=== PATIENT | male | born 1985 | race Caucasian/White ===

== ENCOUNTER 2016-12-28 12:47 | Emergency (ER) | payer OTHER ==
[2016-12-28] MEDS ORDERED: LIDOCAINE 2% VISCOUS SOLN 20 ML UDCUP PO ONE (13:09)
[2016-12-28] MEDS ORDERED: ASPIRIN 81 MG TABLET, CHEWABLE PO ONE (13:09)
[2016-12-28] MEDS ORDERED: METOCLOPRAMIDE HCL ORAL SOLN 10 MG/10 ML UDCUP PO ONE (13:09)
[2016-12-28] MEDS ORDERED: MAG HYDROX/AL HYDROX/SIMETH SUSP 30 ML UDCUP PO ONE (13:09)
--- NOTE | 2016-12-28 13:12 | ER Document Report ---
ED Medical Screen (RME) - General Chief Complaint: Chest Pain Stated Complaint: CHEST PAIN Mode of Arrival: Ambulatory Information source: Patient Notes: 31 y/o M presents to ED c/o intermittently persistent substernal chest and epigastric area pain over the last week. Reports associated dizziness and lightheadedness. Denies fever or hemoptysis. I have greeted and performed a rapid initial assessment of this patient. A comprehensive ED assessment and evaluation of the patient, analysis of test results and completion of the medical decision making process will be conducted by additional ED providers. TRAVEL OUTSIDE OF THE [place] IN LAST 30 DAYS: No - Related Data Allergies/Adverse Reactions: morphine [Morphine] Allergy (Intermediate, Verified 12/28/16 13:09) Past Medical History - Social History Chew tobacco use (# tins/day): No Frequency of alcohol use: Rare Drug Abuse: None Family history: None - adopted - Past Medical History Cardiac Medical History: Denies: Hx Coronary Artery Disease, Hx Heart Attack, Hx Hypertension Pulmonary Medical History: Denies: Hx Asthma, Hx Bronchitis, Hx COPD, Hx Pneumonia Neurological Medical History: Reports: Hx Migraine. Denies: Hx Cerebrovascular Accident, Hx Seizures Renal/ Medical History: Denies: Hx Peritoneal Dialysis Musculoskeltal Medical History: Reports Hx Arthritis - All over, Reports Hx Musculoskeletal Trauma Psychiatric Medical History: Reports: Hx Anxiety, Hx Depression Past Surgical History: Reports: Hx Adenoidectomy, Hx Appendectomy, Hx Orthopedic Surgery - LEFT SHOULDER 12/2009, Hx Tonsillectomy - Immunizations Immunizations up to date: Yes Hx Diphtheria, Pertussis, Tetanus Vaccination: Yes Physical Exam - Vital signs Vitals: Temp Pulse Resp BP Pulse Ox 98.7 F 85 20 103/61 98 12/28/16 13:06 12/28/16 13:06 12/28/16 13:06 12/28/16 13:06 12/28/16 13:06 - General General appearance: Appears well, Alert In distress: None - Respiratory Respiratory status: No respiratory distress - Cardiovascular Rhythm: Regular Pulses: Normal: Radial Normal capillary refill: Yes Course - Vital Signs Vital signs: Temp Pulse Resp BP Pulse Ox 98.7 F 85 20 103/61 98 12/28/16 13:06 12/28/16 13:06 12/28/16 13:06 12/28/16 13:06 12/28/16 13:06
[2016-12-28 13:58] LABS: ABSOLUTE EOSINOPHILS # (AUTO) 0.2 10^3/uL (0.0-0.6); ABSOLUTE LYMPHOCYTES (AUTO) 1.6 10^3/uL (0.5-4.7); ABSOLUTE MONOCYTES (AUTO) 0.6 10^3/uL (0.1-1.4); ABSOLUTE NEUT (AUTO) 5.1 10^3/uL (1.7-8.2); BASOPHILS % (AUTO) 0.5 % (0-2); EOSINOPHILS % (AUTO) 2.4 % (0-6); HEMATOCRIT 44.9 % (37.9-51.0); HEMOGLOBIN 15.2 g/dL (13.5-17.0); HGB HCT DIFFERENCE 0.7; LYMPHOCYTES % (AUTO) 21.4 % (13-45); MEAN CORPUSCULAR HEMOGLOBIN 29.8 pg (27.0-33.4); MEAN CORPUSCULAR VOLUME 88 fl (80-97); MONOCYTES % (AUTO) 8.3 % (3-13); RED BLOOD COUNT 5.11 10^6/uL (4.35-5.55); RED CELL DISTRIBUTION WIDTH 14.1 % (11.5-14.0); SEGMENTED NEUTROPHILS % (AUTO) 67.4 % (42-78); WHITE BLOOD COUNT 7.6 10^3/uL (4.0-10.5)
[2016-12-28 14:16] LABS: ALANINE AMINOTRANSFERASE 20 U/L (21-72); ALBUMIN 4.4 g/dL (3.5-5.0); ALKALINE PHOSPHATASE 50 U/L (38-126); ANION GAP 13 (5-19); ASPARTATE AMINO TRANSFERASE 15 U/L (17-59); BILIRUBIN,TOTAL 0.5 mg/dL (0.2-1.3); BLOOD UREA NITROGEN 8 mg/dL (7-20); CALCIUM 9.9 mg/dL (8.4-10.2); CARBON DIOXIDE 26 mmol/L (22-30); CHLORIDE 102 mmol/L (98-107); CREATINE KINASE 117 U/L (55-170); CREATININE RESULT 0.82 mg/dL (0.52-1.25); GLUCOSE 94 mg/dL (75-110); LIPASE 42.4 U/L (23-300); POTASSIUM 4.2 mmol/L (3.6-5.0); SODIUM 140.7 mmol/L (137-145); TOTAL PROTEIN 7.3 g/dL (6.3-8.2)
[2016-12-28 14:29] LABS: CREATINE KINASE MB < 0.22 ng/mL (<4.55); TROPONIN I < 0.012 ng/mL
--- NOTE | 2016-12-28 20:10 | EKG REPORT ---
SEVERITY:- ABNORMAL ECG - SINUS RHYTHM MULTIPLE VENTRICULAR PREMATURE COMPLEXES BORDERLINE T WAVE ABNORMALITIES : Confirmed by: Toni Adame 28-Dec-2016 20:10:06
[2016-12-28] MEDS ORDERED: IPRATROPIUM/ALBUTEROL 0.5-2.5 MG/3 ML AMPUL NEB ONE (22:44)
[2016-12-28] MEDS ORDERED: KETOROLAC TROMETHAMINE 60 MG/2 ML SDV IM ONE (22:44)
--- NOTE | 2016-12-28 23:17 | ER Document Report ---
ED Cardiac - General Mode of Arrival: Ambulatory Information source: Patient TRAVEL OUTSIDE OF THE [place] IN LAST 30 DAYS: No - HPI Patient complains to provider of: Chest pain, Shortness of breath Chest pain location: Substernal Quality of pain: Other - see above Chest pain precipitating factors: At Rest Cardiac risk factors: Smoker Associated symptoms: Other - see above <HIRAL MEDINA - Last Filed: 12/29/16 00:44> <ARIELLA NUNEZ - Last Filed: 12/29/16 07:05> - General Chief Complaint: Chest Pain Stated Complaint: CHEST PAIN Notes: 31 year old male with history of smoking presents to the ED complaining of substernal chest pain that has been present for the past week. Patient states that it feels like "an elephant is sitting on my chest" and he is having difficulty breathing. Patient states that the pain is not exacerbated after eating. Patient is also complaining of an intermittent cough. Patient explains that he's had these chest pain episodes in the past. (HIRAL MEDINA) - Related Data Allergies/Adverse Reactions: morphine [Morphine] Allergy (Intermediate, Verified 12/28/16 13:09) Past Medical History - General Information source: Patient - Social History Smoking Status: Current Every Day Smoker Chew tobacco use (# tins/day): No Frequency of alcohol use: Rare Drug Abuse: None Family History: Reviewed & Not Pertinent Patient has suicidal ideation: No Patient has homicidal ideation: No - Past Medical History Cardiac Medical History: Denies: Hx Coronary Artery Disease, Hx Heart Attack, Hx Hypertension Pulmonary Medical History: Denies: Hx Asthma, Hx Bronchitis, Hx COPD, Hx Pneumonia Neurological Medical History: Reports: Hx Migraine. Denies: Hx Cerebrovascular Accident, Hx Seizures Renal/ Medical History: Denies: Hx Peritoneal Dialysis Musculoskeltal Medical History: Reports Hx Arthritis - All over, Reports Hx Musculoskeletal Trauma Psychiatric Medical History: Reports: Hx Anxiety, Hx Depression Past Surgical History: Reports: Hx Adenoidectomy, Hx Appendectomy, Hx Orthopedic Surgery - LEFT SHOULDER 12/2009 Hip 09/2016, Hx Tonsillectomy - Immunizations Immunizations up to date: Yes Hx Diphtheria, Pertussis, Tetanus Vaccination: Yes <HIRAL MEDINA - Last Filed: 12/29/16 00:44> Review of Systems - Review of Systems Constitutional: No symptoms reported EENT: No symptoms reported Cardiovascular: See HPI, Chest pain Respiratory: See HPI, Cough Gastrointestinal: No symptoms reported Genitourinary: No symptoms reported Male Genitourinary: No symptoms reported Musculoskeletal: No symptoms reported Skin: No symptoms reported Hematologic/Lymphatic: No symptoms reported Neurological/Psychological: No symptoms reported -: Yes All other systems reviewed and negative <MEDINA,HIRAL - Last Filed: 12/29/16 00:44> Physical Exam - Vital signs Interpretation: Normal - General General appearance: Alert In distress: None - HEENT Head: Normocephalic, Atraumatic Eyes: Normal Extraocular movements intact: Yes Pupils: PERRL - Respiratory Respiratory status: No respiratory distress Chest status: Nontender Breath sounds: Wheezing - bilaterally with forced expiration Chest palpation: Normal - Cardiovascular Rhythm: Regular Heart sounds: Normal auscultation - Abdominal Inspection: Normal - Back Back: Normal - Extremities General upper extremity: Normal inspection, Normal ROM General lower extremity: Normal inspection, Normal ROM - Neurological Neuro grossly intact: Yes Cognition: Normal Orientation: AAOx4 [place] Coma Scale Eye Opening: Spontaneous [place] Coma Scale Verbal: Oriented [place] Coma Scale Motor: Obeys Commands [place] Coma Scale Total: 15 Speech: Normal - Psychological Associated symptoms: Normal affect, Normal mood - Skin Skin Temperature: Warm Skin Moisture: Dry Skin Color: Normal <MEDINAHIRAL - Last Filed: 12/29/16 00:44> Course - Laboratory Result Diagrams: 12/28/16 13:40 12/28/16 13:40 <HIRAL MEDINA - Last Filed: 12/29/16 00:44> - Laboratory Result Diagrams: 12/28/16 13:40 12/28/16 13:40 <ARIELLA NUNEZ - Last Filed: 12/29/16 07:05> - Re-evaluation Re-evalutation: 12/29/16 Patient with chest wall pain. Feels better after nebulizer treatment and steroids. Patient is advised to stop smoking. Will be discharged home with steroids and albuterol. No evidence for pneumonia. Return if any worsening or concerning symptoms. (ARIELLA NUNEZ) - Vital Signs Vital signs: Temp Pulse Resp BP Pulse Ox 98.3 F 59 L 18 102/56 L 98 12/29/16 00:11 12/29/16 00:11 12/29/16 00:11 12/29/16 00:11 12/29/16 00:11 (HIRAL MEDINA) (ARIELLA NUNEZ) - Laboratory Laboratory results interpreted by me: 12/28/16 12/28/16 13:40 13:40 RDW 14.1 H AST 15 L ALT 20 L (HIRAL MEDINA) (ARIELLA NUNEZ) Discharge <HIRAL MEDINA - Last Filed: 12/29/16 00:44> <ARIELLA NUNEZ - Last Filed: 12/29/16 07:05> - Discharge Clinical Impression: Bronchospasm Chest pain Qualifiers: Chest pain type: unspecified Qualified Code(s): R07.9 - Chest pain, unspecified Condition: Stable Disposition: HOME, SELF-CARE Instructions: Chest Wall Pain ([facility]), Bronchospasm ([facility]), Bronchodilators ([facility]) Prescriptions: Prednisone 40 mg PO DAILY #6 tablet Forms: Smoking Cessation Education, Return to School Scribe Attestation: 12/29/16 07:05 I personally performed the services described in the documentation, reviewed and edited the documentation which was dictated to the scribe in my presence, and it accurately records my words and actions. (ARIELLA NUNEZ) Scribe Documentation - Scribe Written by Ryanibdebby:: Renea Hernandez, 12/29/2016 0056 acting as scribe for :: Dara <HIRAL MEDINA - Last Filed: 12/29/16 00:44>
[2016-12-28] MEDS ORDERED: PREDNISONE 20 MG TABLET PO ONE (23:25)
[2016-12-29] MEDS ORDERED: ALBUTEROL SULFATE HFA (90 MCG/PUFF) 8 GM MDI (1 MDI/ER DISP) IH ONE (00:02)
[2016-12-29 00:12] VITALS: BP 102/56
== END 2016-12-29 00:12 | disposition home or self-care (01) ==
LOC: ER 12:47
DX: J98.01 Acute bronchospasm (principal); R07.9 Chest pain, unspecified; R06.00 Dyspnea, unspecified; F17.200 Nicotine dependence, unspecified, uncomplicated; Z88.6 Allergy status to analgesic agent
CPT/HCPCS: 93005; 94640; 99285; 96372; 36415; 82553; 82550; 83690; 85025; 80053; 84484; 71010; 93010; J1885; J3490 ×2; J7512; J7620

== ENCOUNTER → 2017-07-28 | Day surgery (SDC) | payer OTHER ==
[~2017-07-28] MED LIST: LIDOCAINE 1% INJ-PF (10 MG/ML) 30 ML SDV ONE
--- NOTE | 2017-07-28 14:44 | RADIOLOGY REPORT (SQ) ---
EXAM DESCRIPTION: ARTHRO SHOULDER INJECTION; FLUORO/NEEDLE PLACEMENT COMPLETED DATE/TIME: 07/28/2017 1:22 pm REASON FOR STUDY: SUPERIOR GLENOID LABRUM LESION OF LEFT SHOULDER (S43.432A) S43.432A SUPERIOR VANNESA OID LABRUM LESION OF LEFT SHOULDER, IN COMPARISON: None. FLUOROSCOPY TIME: 12 seconds 2 digital left shoulder images saved to PACS. LIMITATIONS: None. PROCEDURE: Procedure, risks, benefits and alternatives explained to patient who then gave written co nsent. The posterior left shoulder was marked and a time out was called for correct procedure verific ation. Posterior entry site marked using fluoroscopic guidance. Shoulder prepped and draped using s terile technique. Local anesthesia achieved using 4 mL of 1% lidocaine injection. 22 gauge spinal n eedle introduced into the joint space under direct fluoroscopic visualization. Non-ionic contrast ins tilled to confirm intra-articular position. Dilute gadolinium solution then injected. Needle removed and entry site covered with sterile bandage. No immediate complications noted. TECHNIQUE: Digital images acquired during fluoroscopy and stored on PACS. Patient immediately take n to the MR suite for additional imaging. INJECTION LOCATION: Posterior left shoulder. CONTRAST TYPE AND AMOUNT: 0.5 mL of Isovue-300 was used to confirm intra-articular needle placement f ollowed by 6 mL of dilute ProHance gadolinium for MR arthrogram IMPRESSION: SUCCESSFUL NEEDLE PLACEMENT AND INJECTION FOR LEFT SHOULDER MR ARTHROGRAM USING POSTERIO R APPROACH. COMMENT: Quality ID [id number]: Final reports for procedures using fluoroscopy that document radiation exp osure indices, or exposure time and number of fluorographic images (if radiation exposure indices are not available) TECHNICAL DOCUMENTATION: JOB ID: [id number] [employer]- All Rights Reserved
--- NOTE | 2017-07-28 15:11 | RADIOLOGY REPORT (SQ) ---
EXAM DESCRIPTION: MRI LT UPPER JOINT WITH COMPLETED DATE/TIME: 07/28/2017 1:53 pm REASON FOR STUDY: SUPERIOR GLENOID LABRUM LESION OF LEFT SHOULDER (S43.432A) S43.432A SUPERIOR VANNESA OID LABRUM LESION OF LEFT SHOULDER, IN COMPARISON: None. TECHNIQUE: Left shoulder images acquired and stored on PACS. Multiplanar imaging to include fat sens itive sequences such as T1, water sensitive sequences such as FST2/STIR, cartilage sensitive sequence s such as FSPD/gradient-echo sequences. LIMITATIONS: None. FINDINGS: BONE MARROW AND CORTEX: No worrisome bone lesions or marrow replacement. No occult fractur es. JOINT OR BURSAL EFFUSION: No significant joint or bursal fluid. No suggestion of loose bodies. GLENO-HUMERAL ARTICULATION: Normal articulation. No subluxation. No cystic change. No osteophytes or cartilage loss. ACROMION AND AC JOINT: Type 1 acromion No down-sloping or distal spur. Sub-acromial space maintaine d. No significant AC joint arthropathy. ROTATOR CUFF AND INTERVAL: No significant tear or signal alteration. No cuff muscle atrophy. No rotator interval tear. No rotator interval thickening to suggest adhesive capsulitis. LABRUM AND BICEPS LABRAL COMPLEX: Intra-articular long head biceps tendon intact. Distal biceps in normal location in bicipital groove. There is some contrast insinuating along the undersurface of t he superior labrum without full-thickness labral tear or paralabral cyst. This is best shown on sagi ttal images 8-12, and axial image 7. REMAINDER OF LABRUM AND IGHL : No gross tear or paralabral cyst formation. Labral evaluation is less than optimal without joint distention. No thickening of IGHL to suggest adhesive capsulitis. PERIARTICULAR AND ADJACENT SOFT TISSUES: No masses or abnormal nodes. OTHER: No other significant finding. IMPRESSION: SUPERIOR LABRUM TRUNCATED, WITH A SMALL AMOUNT OF CONTRAST TRACKING BETWEEN IT AND THE A RTICULAR HYALINE CARTILAGE. THIS COULD BE POSTOPERATIVE CHANGE OR A VERY SMALL SUPERIOR LABRAL TEAR. NO PARALABRAL CYST. OTHERWISE, NORMAL MRI OF THE SHOULDER. TECHNICAL DOCUMENTATION: JOB ID: [id number] [employer]- All Rights Reserved
== END ==
LOC: RAD 12:30
PROVIDERS: ATTEND Nuclear Medicine
PROC: BP09ZZZ Plain Radiography of Left Shoulder (ICD-10-PCS; principal; 2017-07-28)
DX: S43.432A Superior glenoid labrum lesion of left shoulder, initial encounter (principal); X58.XXXA Exposure to other specified factors, initial encounter
CPT/HCPCS: 73222; 77002; 23350; A9576; J3490

== ENCOUNTER 2017-09-24 21:53 | Emergency (ER) | payer OTHER ==
--- NOTE | 2017-09-24 22:29 | ER Document Report ---
ED Medical Screen (RME) - General Chief Complaint: Syncope Stated Complaint: CONFUSED/ HEAD PAIN Time Seen by Provider: 09/24/17 22:21 Mode of Arrival: Wheelchair Information source: Patient, Relative TRAVEL OUTSIDE OF THE [place] IN LAST 30 DAYS: No - HPI Patient complains to provider of: syncope 2 Onset: Just prior to arrival Onset/Duration: Sudden Quality of pain: No pain Notes: 09/24/17 22:28 Patient is a 32-year-old male presenting to the emergency room for syncopal episode 2, states he was in the shower when he passed out, his overheard him falling in the shower, went in to assist with him, and he fell one more time , he does not remember these episodes, she did not see any seizure-like activity , he does not remember anything that occurred prior to except he was at one point in time standing in the shower with a bar of soap in his hand, he otherwise had a fairly normal day, he is wearing a external vehicle monitor technician for 2 weeks, states it is because his multimedia artist and vacuum pan tender through the [place] are trying to find out why he has COPD and lung issues at such a young age, he is a smoker - Related Data Allergies/Adverse Reactions: morphine [Morphine] Allergy (Intermediate, Verified 12/28/16 13:09) Past Medical History - Social History Family history: None - adopted - Past Medical History Cardiac Medical History: Denies: Hx Coronary Artery Disease, Hx Heart Attack, Hx Hypertension Pulmonary Medical History: Denies: Hx Asthma, Hx Bronchitis, Hx COPD, Hx Pneumonia Neurological Medical History: Reports: Hx Migraine. Denies: Hx Cerebrovascular Accident, Hx Seizures Renal/ Medical History: Denies: Hx Peritoneal Dialysis Musculoskeltal Medical History: Reports Hx Arthritis - All over, Reports Hx Musculoskeletal Trauma Psychiatric Medical History: Reports: Hx Anxiety, Hx Depression Past Surgical History: Reports: Hx Adenoidectomy, Hx Appendectomy, Hx Orthopedic Surgery - LEFT SHOULDER 12/2009 Hip 09/2016, Hx Tonsillectomy - Immunizations Immunizations up to date: Yes Hx Diphtheria, Pertussis, Tetanus Vaccination: Yes Physical Exam - Vital signs Vitals: Temp Pulse Resp BP Pulse Ox 98.7 F 102 H 16 118/78 98 09/24/17 22:01 09/24/17 22:01 09/24/17 22:01 09/24/17 22:01 09/24/17 22:01 Course - Vital Signs Vital signs: Temp Pulse Resp BP Pulse Ox 98.7 F 102 H 16 118/78 98 09/24/17 22:01 09/24/17 22:01 09/24/17 22:01 09/24/17 22:01 09/24/17 22:01
[2017-09-24 22:49] LABS: ABSOLUTE BASOPHILS # (AUTO) 0.1 10^3/uL (0.0-0.2); ABSOLUTE EOSINOPHILS # (AUTO) 0.4 10^3/uL (0.0-0.6); ABSOLUTE LYMPHOCYTES (AUTO) 2.5 10^3/uL (0.5-4.7); ABSOLUTE MONOCYTES (AUTO) 0.8 10^3/uL (0.1-1.4); ABSOLUTE NEUT (AUTO) 7.1 10^3/uL (1.7-8.2); BASOPHILS % (AUTO) 1.1 % (0-2); HEMATOCRIT 43.1 % (37.9-51.0); HEMOGLOBIN 14.5 g/dL (13.5-17.0); HGB HCT DIFFERENCE 0.4; LYMPHOCYTES % (AUTO) 22.8 % (13-45); MEAN CORPUSCULAR HGB CONC 33.7 g/dL (32.0-36.0); MEAN CORPUSCULAR VOLUME 89 fl (80-97); MONOCYTES % (AUTO) 7.5 % (3-13); RED BLOOD COUNT 4.84 10^6/uL (4.35-5.55); RED CELL DISTRIBUTION WIDTH 14.2 % (11.5-14.0); SEGMENTED NEUTROPHILS % (AUTO) 64.6 % (42-78); WHITE BLOOD COUNT 11.1 10^3/uL (4.0-10.5)
--- NOTE | 2017-09-24 22:53 | EKG REPORT ---
SEVERITY:- ABNORMAL ECG - SINUS RHYTHM VENTRICULAR TRIGEMINY NONSPECIFIC INTRAVENTRICULAR CONDUCTION DELAY : Confirmed by: Toni Adame 24-Sep-2017 22:52:54
[2017-09-24 23:12] LABS: ALANINE AMINOTRANSFERASE 24 U/L (21-72); ALBUMIN 4.6 g/dL (3.5-5.0); ALKALINE PHOSPHATASE 39 U/L (38-126); ANION GAP 11 (5-19); ASPARTATE AMINO TRANSFERASE 16 U/L (17-59); BILIRUBIN,DIRECT 0.5 mg/dL (0.0-0.4); BILIRUBIN,TOTAL 0.5 mg/dL (0.2-1.3); BLOOD UREA NITROGEN 10 mg/dL (7-20); CALCIUM 9.7 mg/dL (8.4-10.2); CARBON DIOXIDE 28 mmol/L (22-30); CHLORIDE 103 mmol/L (98-107); CREATINE KINASE 79 U/L (55-170); CREATININE RESULT 0.88 mg/dL (0.52-1.25); GLUCOSE 101 mg/dL (75-110); POTASSIUM 4.3 mmol/L (3.6-5.0); SODIUM 142.3 mmol/L (137-145); TOTAL PROTEIN 7.1 g/dL (6.3-8.2)
[2017-09-24 23:25] LABS: CREATINE KINASE MB < 0.22 ng/mL (<4.55); TROPONIN I < 0.012 ng/mL
--- NOTE | 2017-09-24 23:45 | ER Document Report ---
ED General - General Chief Complaint: Syncope Stated Complaint: CONFUSED/ HEAD PAIN Time Seen by Provider: 09/24/17 22:21 Mode of Arrival: Wheelchair Notes: Patient is a 32 year old male that comes to the ED for chief complaint of syncopal episode and hitting his head in the shower. He states he remembers standing in the shower, then woke up on the floor of the shower, then he passed out again. He reports pain at the back of his head. He states he felt numb on his left side of the body although this resolved. He denies shortness of breath , nausea/vomiting. He denies history of seizures, history of syncope. He smokes , he has a history of COPD, [facility] He is currently wearing a heart monitor, states he believes he already had an echocardiogram. He states he has psych/sleeping medications at home but he is not taking them. He states he is prescribed no other medications. Girlfriend at bedside. TRAVEL OUTSIDE OF THE [place] IN LAST 30 DAYS: No - Related Data Allergies/Adverse Reactions: morphine [Morphine] Allergy (Intermediate, Verified 12/28/16 13:09) Past Medical History - General Information source: Patient, Relative - Social History Smoking Status: Current Every Day Smoker Frequency of alcohol use: None Drug Abuse: None Lives with: Family Family History: Reviewed & Not Pertinent Patient has suicidal ideation: No Patient has homicidal ideation: No - Past Medical History Cardiac Medical History: Denies: Hx Coronary Artery Disease, Hx Heart Attack, Hx Hypertension Pulmonary Medical History: Denies: Hx Asthma, Hx Bronchitis, Hx COPD, Hx Pneumonia Neurological Medical History: Reports: Hx Migraine. Denies: Hx Cerebrovascular Accident, Hx Seizures Renal/ Medical History: Denies: Hx Peritoneal Dialysis Musculoskeltal Medical History: Reports Hx Arthritis - All over, Reports Hx Musculoskeletal Trauma Psychiatric Medical History: Reports: Hx Anxiety, Hx Depression Past Surgical History: Reports: Hx Adenoidectomy, Hx Appendectomy, Hx Oral Surgery - wisdom teeth, Hx Orthopedic Surgery - LEFT SHOULDER 12/2009 Hip 09/2016 , Hx Tonsillectomy - Immunizations Immunizations up to date: Yes Hx Diphtheria, Pertussis, Tetanus Vaccination: Yes Review of Systems - Review of Systems Constitutional: No symptoms reported EENT: No symptoms reported Cardiovascular: See HPI Respiratory: No symptoms reported Gastrointestinal: No symptoms reported Genitourinary: No symptoms reported Male Genitourinary: No symptoms reported Musculoskeletal: See HPI Skin: No symptoms reported Hematologic/Lymphatic: No symptoms reported Neurological/Psychological: See HPI Physical Exam - Vital signs Vitals: Temp Pulse Resp BP Pulse Ox 98.7 F 102 H 16 118/78 98 09/24/17 22:01 09/24/17 22:01 09/24/17 22:01 09/24/17 22:01 09/24/17 22:01 Interpretation: Normal - General General appearance: Appears well, Alert In distress: None - HEENT Head: Normocephalic, Atraumatic Eyes: Normal Pupils: PERRL - Respiratory Respiratory status: No respiratory distress Chest status: Nontender, Other - Event monitor noted to be in place in the left upper chest Breath sounds: Normal Chest palpation: Normal - Cardiovascular Rhythm: Extrasystoles Heart sounds: Normal auscultation, S1 appreciated, S2 appreciated Murmur: No Normal capillary refill: Yes - Abdominal Inspection: Normal Distension: No distension Bowel sounds: Normal Tenderness: Nontender. No: Tender, Guarding Organomegaly: No organomegaly - Back Back: Normal, Nontender. No: Tender - Extremities General upper extremity: Normal inspection, Nontender, Normal strength, Normal temperature General lower extremity: Normal inspection, Nontender, Normal strength, Normal temperature - Neurological Neuro grossly intact: Yes Cognition: Normal Orientation: AAOx4 [place] Coma Scale Eye Opening: Spontaneous [place] Coma Scale Verbal: Oriented [place] Coma Scale Motor: Obeys Commands [place] Coma Scale Total: 15 Speech: Normal Motor strength normal: LUE, RUE, LLE, RLE Sensory: Normal - Psychological Associated symptoms: Normal affect, Normal mood - Skin Skin Temperature: Warm Skin Moisture: Dry Skin Color: Normal Course - Re-evaluation Re-evalutation: EKG showing multiple PVCs, otherwise in sinus rhythm. No T-wave inversions or ST segment changes. CAT scan was performed because of reported loss of consciousness after initially hitting his head, this is unremarkable. CBC, chemistry, magnesium, troponin unremarkable. Patient reports occasionally feeling lightheaded but otherwise is asymptomatic on reevaluation. On monitoring patient is noted to be having a large amount of PVCs but no other abnormality was noted. Concern because of patient's developing symptoms including syncope, probably from numerous runs of PVCs. Discussed with Dr. Schuler. Recommends potential transfer to tertiary center for evaluation and possible placement of defibrillator based on his symptoms and evaluation. I discussed this with patient and significant other, they are in full agreement with this plan. 09/25/17 02:[address] Kee, Cardiology, patient accepted for transfer. 09/25/17 05:50 Patient resting comfortably, awaiting transport, transport will happen about 7: 30 PM. No significant change from prior. 09/25/17 07:[address] Meek. - Vital Signs Vital signs: Temp Pulse Resp BP Pulse Ox 98.8 F 102 H 14 109/69 99 09/25/17 08:46 09/24/17 22:01 09/25/17 08:01 09/25/17 08:01 09/25/17 08:01 - Laboratory Result Diagrams: 09/24/17 22:36 09/24/17 22:36 Laboratory results interpreted by me: 09/24/17 09/24/17 09/25/17 22:36 22:36 05:00 WBC 11.1 H RDW 14.2 H Direct Bilirubin 0.5 H AST 16 L Urine Bilirubin SMALL H Urine Urobilinogen 4.0 H Discharge - Discharge Clinical Impression: Symptomatic PVCs, Lightheadedness Syncope Qualifiers: Syncope type: unspecified Qualified Code(s): R55 - Syncope and collapse Condition: Stable Disposition: [facility]
[2017-09-25 00:32] LABS: ALCOHOL < 10 mg/dL (NONE DETECTED)
--- NOTE | 2017-09-25 00:48 | RADIOLOGY REPORT (SQ) ---
EXAM DESCRIPTION: CT HEAD WITHOUT CLINICAL HISTORY: head injury, LOC COMPARISON: None available TECHNIQUE: Axial CT of the head obtained from the skull apex to the skull base without contrast. FINDINGS: No acute intracranial hemorrhage identified. No mass, mass effect, shift of the midline, abnormal extra-axial fluid collection or CT evidence of acute ischemic change identified. The ventricular system is unremarkable. No acute abnormalities of the supratentorial white matter, basal ganglia, cerebellum, or brainstem. The visualized paranasal sinuses and the mastoids are clear. No skull fracture identified. Visualized orbits and globes are unremarkable. DLP:1162.97 mGy-cm IMPRESSION: 1. No acute intracranial abnormality by CT criteria This exam was performed according to our departmental dose-optimization program, which includes automated exposure control, adjustment of the mA and/or kV according to patient size and/or use of iterative reconstruction technique.
[2017-09-25 05:31] LABS: APPEARANCE,URINE CLEAR; BILIRUBIN,URINE SMALL (NEGATIVE); GLUCOSE, URINE NEGATIVE (NEGATIVE); KETONES,URINE NEGATIVE (NEGATIVE); LEUKOCYTE ESTERASE,URINE NEGATIVE (NEGATIVE); NITRITE,URINE NEGATIVE (NEGATIVE); PROTEIN,URINE NEGATIVE (NEGATIVE); URINE SPECIFIC GRAVITY 1.028
[2017-09-25] MEDS ORDERED: NORMAL SALINE 1000 ML 500 ML IV ONE (06:02)
[2017-09-25 08:46] VITALS: BP 109/69
== END 2017-09-25 09:31 | disposition short-term general hospital (02) ==
LOC: ER 21:53
DX: I49.3 Ventricular premature depolarization (principal); R55 Syncope and collapse; R42 Dizziness and giddiness; R51 Headache; R41.82 Altered mental status, unspecified; F17.200 Nicotine dependence, unspecified, uncomplicated
CPT/HCPCS: 93005; 99285; 96360; 36415; 82553; 80307; 82550; 83735; 85025; 80053; 81001; 84484; 70450; 93010; J7030